=== PATIENT | female | born 1995 ===

== ENCOUNTER 2024-11-15 18:43 | Emergency (ER) | payer OTHER ==
[~2024-11-15] VITALS: Ht 144.8 cm; Wt 68.0 kg
[2024-11-15] MEDS ORDERED: PRED20TA3 PO (18:55)
[2024-11-15] MEDS ORDERED: IBUP-2077 PO (18:55)
--- NOTE | 2024-11-15 18:56 | ERN ---
ED Note History of Present Illness Stated Complaint: RT ARM PAIN Chief Complaint: Arm Swelling/Redness Time Seen by MD: 18:46 Dictation: PATIENT IS A 29-YEAR-OLD FEMALE HERE WITH COMPLAINTS OF NUMBNESS TINGLING TO HER RIGHT HAND AND WRIST ONSET THREE DAYS PRIOR TO ARRIVAL. 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 SHE SAID SHE THOUGHT SHE HAD CARPAL TUNNEL SYNDROME WITH CAME IN FOR AN OPINION. NEUROVASCULAR CMS GROSSLY INTACT. POSITIVE TINEL'S TEST Allergies: Coded Allergies: No Known Allergies (Unverified Allergy, Unknown, 11/15/24) Home Meds Active Scripts Ibuprofen (Ibuprofen 800 mg Tab) 800 Mg Tab, 800 MG PO Q8H PRN for fever or pain, #30 TAB 0 Refills Prov:JES BEJARANO NP 11/15/24 Prednisone (Prednisone) 20 Mg Tablet, 1 TAB PO AD for 6 Days, #14 TAB 0 Refills TAKE 1 TAB BY MOUTH THREE TIMES PER DAY X3 DAYS, THEN TAKE 1 TAB BY MOUTH TWICE A DAY X2 DAYS, THEN TAKE 1 TAB BY MOUTH ONCE A DAY X1 DAY. Prov:JES BEJARANO NP 11/15/24 Past Medical History History: Not Applicable RN Note Reviewed/Agreed w/PFSH: Yes Review of System Dictation CONSTITUTIONAL: NEGATIVE EXCEPT FOR HPI HEAD/FACE: NEGATIVE EXCEPT FOR HPI EENT: NEGATIVE EXCEPT FOR HPI RESPIRATORY: NEGATIVE EXCEPT FOR HPI GASTROINTESTINAL/ABDOMINAL: NEGATIVE EXCEPT FOR HPI GENITOURINARY: NEGATIVE EXCEPT FOR HPI MUSCULOSKELETAL: NEGATIVE EXCEPT FOR HPI INTEGUMENTARY: NEGATIVE EXCEPT FOR HPI NEUROLOGICAL/PSYCH: NEGATIVE EXCEPT FOR HPI NUMBNESS AND TINGLING TO RIGHT WRIST HAND HEMATOLOGIC/LYMPHATIC: NEGATIVE EXCEPT FOR HPI ALL SYSTEMS NEGATIVE, EXCEPT NOTED ABOVE. 13 POINT REVIEW OF SYSTEMS ASSESSED AND ALL NEGATIVE EXCEPT FOR ABOVE. Initial Vital Sign VS Vital Signs Date Time Temp Pulse Resp B/P (MAP) Pulse Ox O2 Delivery O2 Flow Rate FiO2 11/15/24 18:45 98.1 105 16 122/87 98 Room Air 0 11/15/24 19:32 21 Physical Exam Dictation VITAL SIGNS REVIEWED GENERAL APPEARANCE: ALERT, ORIENTED X 3, MILD ACUTE DISTRESS, WELL DEVELOPED, NOURISHED. HEAD AND FACE: NON-TRAUMATIC. EYES: PERRL, PINK CONJUNCTIVAS, EYELID NO TRAUMA, ANTERIOR CHAMBER WITH ARCUS SENILIS. EARS: PINNAS INTACT AND NO SIGNS OF TRAUMA OR ERYTHEMA EAR CANALS CLEAR AND NO DISCHARGE TM NO ERYTHEMA NOSE: NO DISCHARGE, NO BLEEDING. OROPHARYNX: MOUTH NORMAL, TONGUE PINK, PHARYNX CLEAR,NO ERYTHEMA, TONSILS NO EXUDATES, NO ABSCESSES NOTED, MUCOUS MEMBRANE MOIST NECK: SUPPLE, NON-TENDER, NO THYROMEGALY, NO MASSES, NO JVD, NO BRUITS BREAST:DEFERRED CHEST:NO TENDERNESS, NO CREPITUS, NO PARADOXICAL MOVEMENT, NO RETRACTIONS LUNGS:CLEAR, WELL-VENTILATED, SYMMETRIC, NO RALES, NO WHEEZING, NO RHONCHI, NO STRIDOR, GOOD BREATH SOUNDS BILATERALLY HEART: REGULAR RATE, REGULAR RHYTHM, NO MURMUR, NO GALLOPS VASCULAR: NO PERIPHERAL EDEMA, ABDOMEN: SOFT, POSITIVE BOWEL SOUNDS, NONDISTENDED, NO GUARDING, NONTENDER, NO REBOUND, NO MASSES NO HEPATOMEGALY, NO SPLENOMEGALY, NO YOUNG'S SIGN, NO HERNIAS. RECTAL: DEFERRED GENITAL: DEFERRED NEUROLOGICAL: NORMAL SPEECH, MOTOR FUNCTION INTACT, SENSORY FUNCTION INTACT POSITIVE TINEL'S TEST RIGHT MUSCULOSKELETAL: NECK NONTENDER, FULL RANGE OF MOTION, BACK NONTENDER, FULL RANGE OF MOTION, EXTREMITIES: NONTENDER, FULL RANGE OF MOTION SKIN: COLOR PINK, DRY, NO TURGOR, NO RASH, NO LACERATIONS, NO ABRASIONS, NO CONTUSIONS. LYMPHATIC: DEFERRED Results (Laboratory/Radiology) Labs Reviewed?: Yes ED Course ED Course Orders Procedure Category Date Status Time Acetaminophen 500mg PHA 11/15/24 Complete Tab (Tylenol 500mg T 19:00 Volar Splint MAURISIO.ER 11/15/24 Complete 18:49 Current Medications Medications (Trade) Dose Ordered Sig/Britton Route PRN Reason Start Time Stop Time Status Last Admin Dose Admin Acetaminophen (TYLenol 500MG TAB) 1,000 mg ONCE ONCE PO 11/15/24 19:00 11/15/24 19:01 DC 11/15/24 19:36 Vital Signs Date Time Temp Pulse Resp B/P (MAP) Pulse Ox O2 Delivery O2 Flow Rate FiO2 11/15/24 19:32 98.6 66 20 124/88 100 Room Air* 0 21 11/15/24 18:45 98.1 105 16 122/87 98 Room Air 0 EIGHTEEN 50 NO LABS OR IMAGING INDICATED. WE WILL SPLINT RIGHT WRIST AND REFER PATIENT TO SEE DR. SIMI SMALL. Medical Decision Making MDM MEDICAL DECISION-MAKING BASED ON SPLINT AND TREATMENT FOR ACUTE CARPAL TUNNEL SYNDROME. PATIENT WILL BE DISCHARGED HOME WITH PREDNISONE AND IBUPROFEN SPLINT PLACED TO RIGHT WRIST WITH DISTAL NEUROVASCULAR CMS INTACT PATIENT REFERRED TO DR. SIMI SMALL DX & DISP Disposition: Discharge Departure Impression: Primary Impression: Carpal tunnel syndrome, right Condition: Stable Scripts Ibuprofen (Ibuprofen 800 mg Tab) 800 Mg Tab 800 MG PO Q8H PRN for fever or pain, #30 TAB 0 Refills Prov: JES BEJARANO NP 11/15/24 Prednisone (Prednisone) 20 Mg Tablet 1 TAB PO AD for 6 Days, #14 TAB 0 Refills TAKE 1 TAB BY MOUTH THREE TIMES PER DAY X3 DAYS, THEN TAKE 1 TAB BY MOUTH TWICE A DAY X2 DAYS, THEN TAKE 1 TAB BY MOUTH ONCE A DAY X1 DAY. Prov: JES BEJARANO NP 11/15/24 Additional Instructions: FOLLOW-UP WITH PRIMARY CARE PROVIDER IN 1 TO 2 DAYS. TAKE MEDICATIONS DIRECTED HERE IN THE EMERGENCY ROOM. OKAY TO CONTINUE HOME MEDICATIONS UNLESS OTHERWISE DISCUSSED DURING YOUR VISIT IN THE EMERGENCY ROOM TODAY. RETURN TO YOUR NEAREST EMERGENCY ROOM IF SYMPTOMS WORSEN OR IF THERE IS NO IMPROVEMENT. CALL 911 IF YOU NEED IMMEDIATE ASSISTANCE. TAKE TYLENOL OR MOTRIN NIFS-WMR-MITULIY NEEDED AND IF NO CONTRAINDICATIONS ARE PRESENT. INCREASE ORAL HYDRATION. A WOUND CULTURE OR URINE CULTURE WAS ORDERED HERE IN THE E MERGENCY ROOM DEPARTMENT PLEASE FOLLOW-UP WITH PRIMARY CARE PROVIDER AND ADVISE THEM TO GET REPEAT PORTS FROM OUR FACILITY. IF YOU HAD ANY GUSTAVO WRAP/SPLINTS THAT WERE APPLIED HERE, PLEASE DO NOT REMOVE THEM UNTIL YOU SEE YOUR PRIMARY CARE OR SPECIALTY. SPLINT AND NO WEIGHT-BEARING TO RIGHT WRIST UNTIL SEEN BY ORTHOPEDIC SURGERY, CALL FOR AN APPOINTMENT OR. TAKE PREDNISONE DIRECTED WITH FOOD UNTIL GONE. TAKE IBUPROFEN EVERY 6-8 HOURS NEEDED FOR PAIN. Referrals: SIMI SMALL MD Time of Disposition: 18:54 I have reviewed the case, and I agree with, Diagnosis and Plan JES BEJARANO NP Nov 15, 2024 18:55 LALO HOPPER DO Nov 16, 2024 07:28
[2024-11-15 19:32] VITALS: BP 124/88; PULSE 66; RESP 20; TEMP 98.6; O2SAT 100
[2024-11-15] MEDS: acetaMINOPHEN 500 MG TABLET PO ONE (19:36)
== END 2024-11-15 19:39 | disposition home or self-care (01) ==
LOC: EDH 18:43
DX: G56.01 Carpal tunnel syndrome, right upper limb (principal); Z79.899 Other long term (current) drug therapy
CPT/HCPCS: 29125; 99283